=== PATIENT | male | born 1955 | race Hispanic/Latino ===

== ENCOUNTER 2018-07-26 08:40 | Outpatient (CLI) | payer BC ==
[2018-07-26 10:17] LABS: Estimated GFR-MDRD - POC Greater than 90
--- NOTE | 2018-07-26 12:58 | MRI ---
MRI BRAIN WITH AND WITHOUT CONTRAST: HISTORY: Left acoustic neuroma. Checkup. The patient had surgery two years ago for tumor removal. COMPARISON: 12/09/2016 and 03/16/2016 TECHNIQUE: A brain MRI is performed with and without intravenous Gadolinium administration. Multisequential, mu ltiplanar imaging is performed. FINDINGS: The calvarium has a normal T1 marrow signal intensity. Midline brain parenchymal structures are unre markable. There is redemonstration of a left occipital craniotomy defect. The previously noted enhancing mass in the left CP angle cistern is no longer evident. There is a stable T2 hyperintense collection, ext raaxial in location. This collection is in the left posterior fossa and extends into the left CP ang le cistern. Currently, this collection measure 2.8 x 4.6 cm. There is some mass effect upon the adj acent left cerebellar hemisphere and left brachium pontis. There is some component of malacic change and gliosis involving the left cerebellar hemisphere, similar to the previous examination. Central arterial flow voids are maintained. Absent restricted diffusion. No significant T2 or FLAIR white matter hyperintensities in the cerebrum. Mild mucosal disease of th e visualized paranasal sinuses. Minimal mucosal disease of the mastoid air cells. On the post contrast images, there is no abnormal enhancement within the aforementioned postoperative collection. 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 Currently, this focus of enhancement measures 0.7 x 0.9 cm (prev iously measuring 0.7 x 1.1 cm). Enhancement is confined to the canal and does not appear to extend b eyond the canal, into the left CP angle cistern. No pathologic enhancement of the brain parenchyma. IMPRESSION: 1. Stable postoperative changes, as described above. 2. 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 No evidence of progression of tumor. POS: [facility]
[2018-07-26] MEDS ORDERED: Gadobenate Dimeglumine 529 MG/1 ML (20ML VIAL) ONE (13:24)
== END 2018-07-26 08:41 | disposition home or self-care (01) ==
LOC: BICMRI 08:40
PROVIDERS: ATTEND Neurological Surgery
DX: D33.3 Benign neoplasm of cranial nerves (principal); H93.8X2 Other specified disorders of left ear; Z98.890 Other specified postprocedural states
CPT/HCPCS: 70553; 82565; A9577

== ENCOUNTER 2019-12-27 09:04 | Outpatient (CLI) | payer MEDICARE, BC ==
--- NOTE | 2019-12-27 12:55 | MRI ---
MRI RIGHT SHOULDER WITHOUT CONTRAST: Date: 12/27/2019 INDICATION: Right shoulder pain. COMPARISON: None. FINDINGS: There is a massive rotator cuff tear involving the supraspinatus and infraspinatus retraction of the tendons to the level of the glenohumeral joint. There is severe infraspinatus and moderate supraspina tus muscular atrophy. The subscapularis tendon demonstrates a high grade partial thickness articular surface tear involving the cranial to mid aspect of the tendon. The teres minor is intact. There is m oderate AC joint osteoarthritis. There is mild glenohumeral osteoarthrosis. The long head of the douglas ps tendon demonstrates a high grade partial thickness tear with a small remnant remaining intact and in place within the bicipital groove. There is prominent degenerative fraying of the superior glenoid labrum. IMPRESSION: 1. Massive rotator cuff tear with severe infraspinatus and moderate supraspinatus muscular atrophy. There is also high grade partial thickness articular surface tear involving the cranial to mid subsca pularis. There is a high grade partial thickness tear of the long head of the biceps tendon. 2. Mild glenohumeral osteoarthrosis. 3. Moderate AC joint osteoarthrosis. POS: [facility]
== END 2019-12-27 09:05 | disposition home or self-care (01) ==
LOC: BICMRI 09:04
PROVIDERS: ATTEND Family Medicine
DX: M25.511 Pain in right shoulder (principal); M19.011 Primary osteoarthritis, right shoulder; M62.511 Muscle wasting and atrophy, not elsewhere classified, right shoulder; S46.111A Strain of muscle, fascia and tendon of long head of biceps, right arm, initial encounter; M75.111 Incomplete rotator cuff tear or rupture of right shoulder, not specified as traumatic

== ENCOUNTER 2020-03-22 08:07 | Outpatient (CLI) | payer MEDICARE, BC ==
--- NOTE | 2020-03-22 08:36 | ULT ---
ULTRASOUND ABDOMINAL AORTA: HISTORY: Screening for abdominal aortic aneurysm FINDINGS: The abdominal aortic measurements are as follows: Proximal: 2.1 x 1.6 x 1.7cm Mid: 1.9 x 1.6 x 1.5cm Distal: 1.5 x 1.3 x 1.0cm IMPRESSION: No evidence of abdominal aortic aneurysm.
== END 2020-03-22 08:08 | disposition home or self-care (01) ==
LOC: BICULT 08:07
PROVIDERS: ATTEND Family Medicine
DX: Z13.6 Encounter for screening for cardiovascular disorders (principal)
CPT/HCPCS: 76775

== ENCOUNTER 2020-04-03 17:00 | Inpatient (IN) | payer MEDICARE, BC ==
[2020-04-03] MEDS ORDERED: Cefepime 2 GM VIAL ONE (17:32)
[2020-04-03] MEDS ORDERED: Vancomycin 1 GM/200 ML BAG ONE ×2 (17:34→18:31)
[2020-04-03 17:47] LABS: #Eosinphils 0.1 thou/uL (0.0-0.7); #Lymphocytes 0.6 thou/uL (1.20-3.40); #Monocytes 0.3 thou/uL (0.11-0.59); #Neutrophils 9.2 thou/uL (1.40-6.50); %Basophils 0.1 % (0.0-1.0); %Eosinophils 0.8 % (0.0-10.0); %Lymphocytes 5.8 % (21.0-51.0); %Monocytes 2.5 % (0.0-10.0); %Neutrophils 90.8 % (42.0-75.0); Mean Corpuscular HGB CONC 33.2 g/dL (32.0-36.0); Mean Corpuscular Volume 87.6 fL (78.0-98.0); Mean Platelet Volume 7.2 fL (7.4-10.4); Platelet Count 263 thou/uL (130-400); RBC Distribution Width 12.7 % (11.5-14.5); Red Blood Cell (RBC) Count 4.49 mill/uL (4.70-6.10); White Blood Cell (WBC) Count 10.1 thou/uL (4.8-10.8)
--- NOTE | 2020-04-03 18:06 | RAD ---
Exam: Chest one view HISTORY:Fever. Comparison: None FINDINGS: Cardiac silhouette: Normal Aorta: Unremarkable Pulmonary vessels: Normal Costophrenic angles: Clear LUNGS: No masses or consolidation. Pneumothorax: None Osseous abnormalities: None IMPRESSION: No acute cardiopulmonary process.
[2020-04-03 18:09] LABS: ALT (SGPT) 71 U/L (8-55); AST (SGOT) 52 U/L (5-34); Albumin 3.6 g/dL (3.4-4.8); Alkaline Phosphatase 98 U/L (40-110); Anion Gap 14 mmol/L (10-20); BUN (Urea Nitrogen) 18 mg/dL (8.4-25.7); Bilirubin, Total 0.7 mg/dL (0.2-1.2); CK (CPK) 64 U/L (30-200); Calc. Creatinine Clearance 0 mL/min (70-130); Calcium 7.8 mg/dL (7.8-10.44); Carbon Dioxide 18 mmol/L (23-31); Chloride 110 mmol/L (98-107); Estimated GFR-MDRD Greater than 90; Globulin 2.5 g/dL (2.4-3.5); Glucose 119 mg/dL (80-115); Lipase 24 U/L (8-78); Potassium 3.8 mmol/L (3.5-5.1); Protein, Total 6.1 g/dL (5.8-8.1); Sodium 138 mmol/L (136-145)
[2020-04-03 18:27] LABS: CKMB 0.8 ng/mL (0-6.6)
[2020-04-03] MEDS ORDERED: Clopidogrel Bisulfate 75 MG TAB ONE (18:30)
[2020-04-03 20:16] LABS: Bacteria/HPF None Seen HPF (None Seen); Bilirubin Negative (Negative); Blood, Urine Trace (Negative); Clarity Clear (Clear); Glucose, Urine (Dipstick) Normal (Negative); Ketone, Urine Negative (Negative); Leukocyte 75 Leu/uL (Negative); Mucous/LPF Rare LPF (<2+); Nitrite Negative (Negative); Protein, Urine (Dipstick) 10 mg/dL (Neg-Trace); RBC/HPF 0-3 HPF (0-3); Specific Gravity, Urine 1.019 (1.002-1.036); Squamous Epithelial 0-3 HPF (0-3); Urobilinogen Normal mg/dL (Less than 2)
[2020-04-03 22:18] LABS: Troponin I 0.849 ng/mL (< 0.028)
[2020-04-03] MEDS ORDERED: Promethazine HCl 12.5 MG in Sodium Chloride 0.9% 50 ML IVPB PRN (22:35)
[2020-04-03] MEDS ORDERED: cloNIDine 0.1 MG TAB PO PRN (22:35)
[2020-04-03] MEDS ORDERED: Acetaminophen 325 MG TAB PO PRN (22:35)
[2020-04-03] MEDS ORDERED: hydrALAZINE 20 MG/ML VIAL SLOW IVP PRN (22:35)
[2020-04-03] MEDS ORDERED: Labetalol HCl 100 MG/20 ML VIAL SLOW IVP PRN (22:35)
[2020-04-03] MEDS ORDERED: Ondansetron PF 4 MG/2 ML Vial IVP PRN (22:35)
[2020-04-03] MEDS ORDERED: Guaifenesin DM 100-10/5 ML UDCUP PO PRN (22:35)
--- NOTE | 2020-04-03 22:37 | PDOC.HHP ---
Hospitalist HPI - History of Present Illness Fever, chills History of Present Illness: Patient is a 65 year old male with PMH HTN, HLD, bells palsy who presents to ED for fevers and chills x 1 day. Patient reports symptoms of chills and weakness began today, he was also reportedly altered, rectal temperature checked at home and was 103.1 w/ EMS. given NS, tylenol. In ED, febrile/tachycardic. given 30 cc/kg bolus. troponin increased on repeat check, lovenox ordered, also given plavix since allergy to NSAID in chart. UA positive for Denies chest pain, currently aox4, denies any other symptoms today besides fever, chills and generalized weakness. No cardaic history. admitted for further workup and care. Hospitalist ROS - Review of Systems Constitutional: reports: fever, chills, weakness, malaise. denies: sweats, other Eyes: denies: pain, vision change, conjunctivae inflammation, eyelid inflammation, redness, other ENT: denies: ear pain, ear discharge, nose pain, nose discharge, nose congestion, mouth pain, mouth swelling, throat pain, throat swelling, other Respiratory: denies: cough, dry, shortness of breath, hemoptysis, SOB with excertion, pleuritic pain, sputum, wheezing, other Cardiovascular: denies: chest pain, palpitations, orthopnea, paroxysmal noc. dyspnea, edema, light headedness, other Gastrointestinal: denies: nausea, vomiting, abdominal pain, diarrhea, constipation, melena, hematochezia, other Genitourinary: denies: dysuria, frequency, incontinence, hematuria, retention, other Musculoskeletal: denies: neck pain, shoulder pain, arm pain, back pain, hand pain, leg pain, foot pain, other Skin: denies: rash, lesions, lakeshia, bruising, other Neurological: denies: weakness, numbness, incoordination, change in speech, confusion, seizures, other All other systems reviewed; all pertinent +/- noted in HPI/Subj - Medication Medications: reviewed, [id number] po bid, atorvastatin po daily Hospitalist History - Past Medical History Other Medical History: HTN, HLD, bells palsy - Past Surgical History Other Surgical History: R hip, neck surgery - Family History Family History: reports: no pertinent history - Social History Smoking Status: Never smoker Alcohol: reports: None Drugs: reports: none - Exam General Appearance: NAD, awake alert Eye: PERRL, anicteric sclera ENT: normocephalic atraumatic, no oropharyngeal lesions, moist mucosa Neck: supple, symmetric, no JVD, no thyromegaly, no lymphadenopathy, no carotid bruit Heart: RRR, no murmur, no gallops, no rubs, normal peripheral pulses Respiratory: CTAB, no wheezes, no rales, no ronchi, normal chest expansion, no tachypnea, normal percussion Gastrointestinal: soft, non-tender, non-distended, normal bowel sounds, no palpable masses, no hepatomegaly, no splenomegaly, no bruit Extremities: no cyanosis, no clubbing, no edema Skin: normal turgor, no lesions, no rashes Neurological: cranial nerve grossly intact, normal sensation to touch, no weakness, no focal deficits, no new deficit Musculoskeletal: normal tone, normal strength, no muscle wasting Psychiatric: normal affect, normal behavior, A&O x 3 Hospitalist Results - Labs Result Diagrams: 04/03/20 17:34 04/03/20 17:34 Lab results: WBC 10.1 thou/uL (4.8-10.8) 04/03/20 17:34 Hgb 13.0 g/dL (14.0-18.0) L 04/03/20 17:34 Hct 39.3 % (42.0-52.0) L 04/03/20 17:34 MCV 87.6 fL (78.0-98.0) 04/03/20 17:34 Plt Count 263 thou/uL (130-400) 04/03/20 17:34 Neutrophils % 90.8 % (42.0-75.0) H 04/03/20 17:34 Sodium 138 mmol/L (136-145) 04/03/20 17:34 Potassium 3.8 mmol/L (3.5-5.1) 04/03/20 17:34 Chloride 110 mmol/L (98-107) H 04/03/20 17:34 Carbon Dioxide 18 mmol/L (23-31) L 04/03/20 17:34 BUN 18 mg/dL (8.4-25.7) 04/03/20 17:34 Creatinine 0.79 mg/dL (0.7-1.3) 04/03/20 17:34 Glucose 119 mg/dL (80-115) H 04/03/20 17:34 Lactic Acid 1.8 mmol/L (0.5-2.2) 04/03/20 17:34 Calcium 7.8 mg/dL (7.8-10.44) 04/03/20 17:34 Total Bilirubin 0.7 mg/dL (0.2-1.2) 04/03/20 17:34 AST 52 U/L (5-34) H 04/03/20 17:34 ALT 71 U/L (8-55) H 04/03/20 17:34 Alkaline Phosphatase 98 U/L (40-110) 04/03/20 17:34 Creatine Kinase 64 U/L (30-200) 04/03/20 17:34 CK-MB (CK-2) 0.8 ng/mL (0-6.6) 04/03/20 17:34 Troponin I 0.849 ng/mL (< 0.028) H* 04/03/20 21:30 B-Natriuretic Peptide 40.3 pg/mL (0-100) 04/03/20 17:34 Serum Total Protein 6.1 g/dL (5.8-8.1) 04/03/20 17:34 Albumin 3.6 g/dL (3.4-4.8) 04/03/20 17:34 Lipase 24 U/L (8-78) 04/03/20 17:34 Urine Ketones Negative mg/dL (Negative) 04/03/20 19:52 Urine Blood Trace (Negative) A 04/03/20 19:52 Urine Nitrite Negative (Negative) 04/03/20 19:52 Ur Leukocyte Esterase 75 Nieves/uL (Negative) A 04/03/20 19:52 Urine RBC 0-3 HPF (0-3) 04/03/20 19:52 Urine WBC 7-10 HPF (0-3) A 04/03/20 19:52 Ur Squamous Epith Cells 0-3 HPF (0-3) 04/03/20 19:52 Urine Bacteria None Seen HPF (None Seen) 04/03/20 19:52 Additional comment: VITAL SIGNS Wed Apr 03, 2020 22:07 RAFAEL Thapa [place] BP: 106/56 MAP: 72 Pulse: 82 Resp: 17 Temp: 98.6 (Oral) O2 sat: 96 on (Room Air) Time: 04/03/2020 22:07. ED documents, imaging reports, labs, microbiology reviewed. - EKG Interpretation EKG: sinus tachycardia rate [address] changes of acuity QTc 515 Hospitalist H&P A/P - Plan Plan: Patient is a 65 year old male with PMH HTN, HLD, bells palsy who presents to ED for fevers and chills x 1 day. Patient reports symptoms of chills and weakness began today, he was also reportedly altered, rectal temperature checked at home and was 103.1 w/ EMS. given NS, tylenol. In ED, febrile/tachycardic. given 30 cc/kg bolus. troponin increased on repeat check, lovenox ordered, also given plavix since allergy to NSAID in chart. UA positive for Denies chest pain, currently aox4, denies any other symptoms today besides fever, chills and generalized weakness. No cardaic history. admitted for further workup and care. 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 will continue plavix - trend troponin, start ACS dose lovenox - consult cardiology' # HTN/HLD - resume home statin, hold TONY inhibitor while septic, PRN medications ordered DVT/GI ppx
[2020-04-03] MEDS ORDERED: Electrolyte Replacement Protoc 1 EACH EACH FS PRN (22:45)
[2020-04-03 23:33] VITALS: BMI 31.1
[2020-04-03] MEDS: Sodium Chloride 0.9% 1,000 ML IV SCH (23:58)
[2020-04-04] MEDS: Enoxaparin Sodium 80 MG/0.8 ML SYRINGE SC SCH ×3 (00:42→20:48)
[2020-04-04 06:30] LABS: #Lymphocytes 1.4 thou/uL (1.20-3.40); #Monocytes 1.1 thou/uL (0.11-0.59); #Neutrophils 9.3 thou/uL (1.40-6.50); %Basophils 0.3 % (0.0-1.0); %Eosinophils 0.3 % (0.0-10.0); %Lymphocytes 11.4 % (21.0-51.0); %Monocytes 9.2 % (0.0-10.0); %Neutrophils 78.7 % (42.0-75.0); Hemoglobin 13.5 g/dL (14.0-18.0); Mean Corpuscular HGB CONC 32.9 g/dL (32.0-36.0); Mean Corpuscular Hemoglobin 29.5 pg (27.0-31.0); Mean Corpuscular Volume 89.8 fL (78.0-98.0); Mean Platelet Volume 7.6 fL (7.4-10.4); Platelet Count 242 thou/uL (130-400); RBC Distribution Width 12.8 % (11.5-14.5); Red Blood Cell (RBC) Count 4.56 mill/uL (4.70-6.10); White Blood Cell (WBC) Count 11.9 thou/uL (4.8-10.8)
[2020-04-04 07:45] LABS: Troponin I 1.073 ng/mL (< 0.028)
[2020-04-04] MEDS: Atorvastatin Calcium 20 MG TAB PO SCH (08:36)
[2020-04-04] MEDS: Famotidine 20 MG TAB PO SCH ×2 (08:36→20:47)
[2020-04-04] MEDS ORDERED: Clopidogrel Bisulfate 75 MG TAB PO SCH (09:00)
[2020-04-04 09:11] LABS: Anion Gap 13 mmol/L (10-20); BUN (Urea Nitrogen) 16 mg/dL (8.4-25.7); Calc. Creatinine Clearance 113 mL/min (70-130); Carbon Dioxide 20 mmol/L (23-31); Chloride 110 mmol/L (98-107); Estimated GFR-MDRD Greater than 90; Glucose 95 mg/dL (80-115); Potassium 3.9 mmol/L (3.5-5.1); Sodium 139 mmol/L (136-145)
[2020-04-04 09:12] LABS: Magnesium 1.9 mg/dL (1.6-2.6)
[2020-04-04] MEDS ORDERED: Magnesium 2 GM/50 ML 2 GM in Premix Bag 1 BAG IVPB SCH (10:45)
[2020-04-04] MEDS: Sodium Chloride 0.9% 1,000 ML IV SCH (11:40)
[2020-04-04 12:45] LABS: SARS-CoV-2 MS2 Positive; SARS-CoV-2 N Gene Negative; SARS-CoV-2 S Gene Negative; SARS-CoV-2 by NAA Not Detected (NotDetected); SARS-CoV-2 orf1ab Negative
[2020-04-04] MEDS ORDERED: TICAGRELOR 90 MG TABLET PO SCH (14:30)
--- NOTE | 2020-04-04 15:18 | PDOC.HOSPP ---
- Subjective Encounter Date: 04/04/20 Encounter Time: 15:10 Subjective: f/u for sepsis due to suspected UTI on Rocephin. Also with NSTEMI receiving Lovenox/Brilinta/Plavix. - Objective Vital Signs & Weight: Vital Signs (12 hours) Temp Pulse Resp BP BP Pulse Ox 04/04/20 11:39 98.8 F 64 16 123/61 96 04/04/20 08:07 95 04/04/20 07:40 100.3 F H 78 18 141/65 H 95 04/04/20 03:40 99.7 F H 73 18 126/81 97 Weight Weight 181 lb 3 oz I&O: 04/03/20 04/04/20 04/05/20 06:59 06:59 06:59 Intake Total 940 Balance 940 Result Diagrams: 04/04/20 04:51 04/04/20 03:02 Additional Labs: Microbiology 04/03/20 19:52 Urine voided Urine Culture - Preliminary 04/03/20 17:42 Venous blood - Left Arm Blood Culture - Preliminary Specimen has been received and culture in progress. No Growth to date. 04/03/20 17:34 Venous blood - Right Hand Blood Culture - Preliminary Specimen has been received and culture in progress. No Growth to date. Laboratory Tests 04/03/20 04/03/20 04/03/20 17:34 17:34 17:34 WBC 10.1 Hgb 13.0 L Neutrophils % 90.8 H Lactic Acid 1.8 Magnesium Troponin I B-Natriuretic Peptide 40.3 SARS-CoV-2 (PCR) 04/03/20 04/03/20 04/03/20 17:34 21:30 22:49 WBC Hgb Neutrophils % Lactic Acid Magnesium Troponin I 0.145 H 0.849 H* B-Natriuretic Peptide SARS-CoV-2 (PCR) Not Detected 04/04/20 04/04/20 04/04/20 00:43 03:02 04:51 WBC Hgb Neutrophils % 78.7 H Lactic Acid Magnesium 1.9 Troponin I 1.073 H* B-Natriuretic Peptide SARS-CoV-2 (PCR) Radiology Reviewed by me: Yes (PCXR - no acute process) EKG Reviewed by me: Yes (Tele - SR) Hospitalist ROS - Medication Medications: Active Medications Generic Name Dose Route Start Last Admin Trade Name Freq PRN Reason Stop Dose Admin Atorvastatin Calcium 20 mg 04/04/20 09:00 04/04/20 08:36 Atorvastatin Calcium 20 Mg Tab PO 20 mg DAILY INES Administration Enoxaparin Sodium 80 mg 04/03/20 09:00 04/04/20 08:36 Enoxaparin Sodium 80 Mg/0.8 Ml Syringe SC 80 mg 0900,2100 INES Administration Famotidine 20 mg 04/04/20 09:00 04/04/20 08:36 Famotidine 20 Mg Tab PO 20 mg BID INES Administration Sodium Chloride 1,000 mls @ 100 mls/hr 04/03/20 22:45 04/04/20 11:40 Normal Saline 0.9% IV 1,000 mls .Q10H IENS Administration - Exam General Appearance: NAD, awake alert Eye: PERRL, anicteric sclera ENT: normocephalic atraumatic, no oropharyngeal lesions Neck: supple, symmetric, no JVD, no thyromegaly, no lymphadenopathy Heart: RRR, no murmur, no gallops, no rubs, normal peripheral pulses Heart - other findings: S1, S2 Respiratory: CTAB, no wheezes, no rales, no ronchi, normal chest expansion, no tachypnea Gastrointestinal: soft, non-tender, non-distended, normal bowel sounds, no palpable masses Extremities: no cyanosis, no clubbing, no edema Skin: normal turgor, no lesions Neurological: cranial nerve grossly intact, no new deficit Neurological - other findings: L facial droop(chronic) Musculoskeletal: normal tone, normal strength, no muscle wasting Psychiatric: normal affect, A&O x 3 Hosp A/P (1) Sepsis due to gram-negative UTI Code(s): A41.50 - GRAM-NEGATIVE SEPSIS, UNSPECIFIED; N39.0 - URINARY TRACT INFECTION, SITE NOT SPECIFIED Status: Acute Plan: Suspected, increase Rocephin 2gm IV daily, await final Ucx results (2) Type 2 myocardial infarction Code(s): I21.A1 - MYOCARDIAL INFARCTION TYPE 2 Status: Acute Plan: Continue Lovenox/Brilinta/Plavix, likely will need ischemic workup after infectious process resolves (3) Metabolic acidosis Code(s): E87.2 - ACIDOSIS Status: Acute Plan: Secondary to sepsis, continue mgmt as outlined above (4) HTN (hypertension) Code(s): I10 - ESSENTIAL (PRIMARY) HYPERTENSION Status: Chronic Qualifiers: Hypertension type: essential hypertension Qualified Code(s): I10 - Essential (primary) hypertension Plan: Resume home BP regimen, serial monitoring - Plan continue antibiotics, aids social worker, out of bed/ambulate, DVT proph w/SCDs Stable currently Continue Rocephin 2gm IV daily Continue Plavix/Brilinta/Lovenox Await final Ucx results 2D echo pending AM lab: CMP, CBC
--- NOTE | 2020-04-04 19:57 | CON ---
DATE OF CONSULTATION: HISTORY: Al Saldana is a pleasant 65-year-old male without any specific previous cardiac problems, although he did have somewhat abnormal EKG, 1 month ago on routine physical. At home yesterday, he started to have temperatures up to 103.1 and apparently was becoming somewhat confused and had mental status changes. One week prior to this, he did notice episodes of urinary frequency and hematuria. He then started to develop dysuria. Family called EMS and he was transferred here. He was given intravenous fluids and was started on Plavix since he is allergic to NSAIDs. He has been started on broad-spectrum antibiotics with Rocephin and is afebrile at the current time. He denies ever having any previous episodes of chest discomfort. He states that he did have shortness of breath when he smokes cigarettes, but stopped 3 years ago. He denies any PND, orthopnea or leg edema. 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 MEDICATIONS: Atorvastatin 20 daily and lisinopril 10 mg daily. ALLERGIES: HE DEVELOPED A RASH WITH ALEVE AND HAS AVOIDED NSAIDS SINCE THAT TIME. OPERATIONS: Removal of left acoustic neuroma with resulting left Castro's palsy, hip surgery on the right. SOCIAL HISTORY: He smoked 2 packs per day, but stopped 3 years ago. He stopped drinking approximately 30 years ago. FAMILY HISTORY: Mother had CABG. PHYSICAL EXAMINATION: VITAL SIGNS: Blood pressure 123/61, pulse 64, temperature 98.8. HEENT: PERRL. NECK: With left Castro's palsy. CHEST: Clear. CARDIAC: S1 and S2 normal without any S3, S4, or murmurs. Carotid upstroke is normal without bruits. ABDOMEN: Normal bowel sounds. Mildly obese. EXTREMITIES: Reveal no clubbing, cyanosis, or edema. NEUROLOGIC: Grossly intact. LABORATORY DATA: EKG reveals sinus tachycardia with rate of 105 per minute with left axis deviation and left bundle-branch block. In review of an EKG from September 2016 in the [employer] system, the left bundle-branch block is new since that time. Cultures are negative thus far, although the urine culture revealed possible pathogens and isolation is in progress. Urinalysis reveals 0 to 3 rbc's, 7 to 10 wbc's, however, no bacteria are seen. Hemoglobin 13.5, hematocrit 41.0, white count 11,800, platelets 242,000. Sodium 139, potassium 3.9, chloride 110, carbon dioxide 20, BUN 16, and creatinine 0.75. Troponin I is up to 1.073. CK-MB is 0.8. BNP 40.3, AST 52, ALT 71. COVID is negative. IMPRESSION: 1. Probable urosepsis with history of dysuria, hematuria and urinary frequency, although his urinalysis does not show any bacteria. Culture is pending. He has been placed on broad-spectrum antibiotics. 2. New left bundle-branch block since 2017. 3. [id number] myocardial infarction. 4. Hypertension. 5. Hypercholesterolemia. 6. Positive family history. 7. Former smoker. 8. History of acoustic neuroma with resulting left Castro's palsy. 9. NSAID allergy. RECOMMENDATIONS: With multiple cardiac risk factors, new left bundle-branch block on his EKG and elevated troponin I, it was recommended he undergo cardiac catheterization. His cultures are still less than 24 hours old and I feel he should have 2 to 3 days of antibiotics prior to going to the manager lab. Risks of cardiac catheterization were discussed with the patient including , myocardial infarction, dye reaction, vascular injury, CVA, transfusion, limb loss, renal damage, etc. Risks of stent placement were discussed including , myocardial infarction, emergent CABG, restenosis, stent thrombosis, vessel perforation, etc. He agrees to proceed. He denies any upcoming surgeries and a drug-eluting stent will be placed if required, although he will only be able to take Plavix due to his NSAID allergy. A consideration also will be given to transitioning to Brilinta. Job ID: [id number] [facility]
[2020-04-04] MEDS: Lisinopril 10 MG TAB PO SCH (20:47)
[2020-04-04] MEDS: cefTRIAXone\\ROCEPHIN 2 GM in Sodium Chloride 0.9% 100 ML IVPB SCH (20:47)
[2020-04-04] MEDS ORDERED: cefTRIAXone\\ROCEPHIN 1 GM in Sodium Chloride 0.9% 100 ML IVPB SCH (21:00)
[2020-04-05] MEDS: Sodium Chloride 0.9% 1,000 ML IV SCH ×2 (01:49→10:50)
[2020-04-05 05:01] LABS: ALT (SGPT) 56 U/L (8-55); AST (SGOT) 35 U/L (5-34); Albumin 3.2 g/dL (3.4-4.8); Alkaline Phosphatase 73 U/L (40-110); Anion Gap 10 mmol/L (10-20); BUN (Urea Nitrogen) 14 mg/dL (8.4-25.7); Bilirubin, Total 0.7 mg/dL (0.2-1.2); Calc. Creatinine Clearance 116 mL/min (70-130); Calcium 7.9 mg/dL (7.8-10.44); Carbon Dioxide 23 mmol/L (23-31); Cardiac Risk 3.4 (Less than 4.5); Chloride 110 mmol/L (98-107); Cholesterol 100 mg/dl (< 200 Desired); Estimated GFR-MDRD Greater than 90; Globulin 2.5 g/dL (2.4-3.5); Glucose 97 mg/dL (80-115); HDL Cholesterol 29 mg/dL (>60 Neg Risk); LDL Cholesterol, Calculated 56 mg/dL; Potassium 3.8 mmol/L (3.5-5.1); Protein, Total 5.7 g/dL (5.8-8.1); Sodium 139 mmol/L (136-145); Triglycerides 74 mg/dL (Less than 150)
[2020-04-05 05:26] LABS: Band 4 % (5-11); Hemoglobin 11.8 g/dL (14.0-18.0); Lymphocytes 14 % (21-51); MDiff Complete? YES; Mean Corpuscular HGB CONC 33.6 g/dL (32.0-36.0); Mean Corpuscular Hemoglobin 29.7 pg (27.0-31.0); Mean Corpuscular Volume 88.5 fL (78.0-98.0); Mean Platelet Volume 7.1 fL (7.4-10.4); Monocytes 16 % (0-10); Neutrophil 66 % (42-75); Platelet Count 219 thou/uL (130-400); RBC Distribution Width 12.6 % (11.5-14.5); Red Blood Cell (RBC) Count 3.98 mill/uL (4.70-6.10); White Blood Cell (WBC) Count 7.8 thou/uL (4.8-10.8)
[2020-04-05] MEDS: Famotidine 20 MG TAB PO SCH ×2 (08:27→20:26)
[2020-04-05] MEDS: TICAGRELOR 90 MG TABLET PO SCH ×2 (08:27→20:26)
[2020-04-05] MEDS: Atorvastatin Calcium 20 MG TAB PO SCH (08:27)
[2020-04-05] MEDS: Lisinopril 10 MG TAB PO SCH ×2 (08:27→20:26)
[2020-04-05] MEDS: Enoxaparin Sodium 80 MG/0.8 ML SYRINGE SC SCH ×2 (08:28→20:27)
--- NOTE | 2020-04-05 15:23 | PDOC.HOSPP ---
- Subjective Encounter Date: 04/05/20 Encounter Time: 15:20 Subjective: f/u for sepsis due UTI with polymicrobial specimen on current Rocephin. NSTEMI concomitantly on Lovenox/Brilinta. - Objective Vital Signs & Weight: Vital Signs (12 hours) Temp Pulse Resp BP BP Pulse Ox 04/05/20 11:32 97.7 F 58 L 18 177/79 H 96 04/05/20 07:19 98.4 F 57 L 19 161/71 H 96 04/05/20 03:30 98.3 F 60 16 154/72 H 96 Weight Weight 181 lb 3 oz I&O: 04/04/20 04/05/20 04/06/20 06:59 06:59 06:59 Intake Total 940 3650 Balance 940 3650 Result Diagrams: 04/05/20 04:16 04/05/20 04:16 Additional Labs: Microbiology 04/03/20 19:52 Urine voided Urine Culture - Final Gram Negative Teddy Gram Negative Teddy#2 Non-Hemolytic Streptococcus 04/03/20 19:52 Urine voided Urine Culture - Preliminary 04/03/20 17:42 Venous blood - Left Arm Blood Culture - Preliminary Specimen has been received and culture in progress. No Growth to date. 04/03/20 17:34 Venous blood - Right Hand Blood Culture - Preliminary Specimen has been received and culture in progress. No Growth to date. 04/03/20 17:34 Venous blood - Right Hand Blood Culture - Preliminary Gram Positive Teddy Laboratory Tests 04/03/20 04/03/20 04/03/20 17:34 17:34 17:34 WBC 10.1 Hgb 13.0 L Neutrophils % 90.8 H Lactic Acid 1.8 Magnesium Troponin I B-Natriuretic Peptide 40.3 SARS-CoV-2 (PCR) 04/03/20 04/03/20 04/03/20 17:34 21:30 22:49 WBC Hgb Neutrophils % Lactic Acid Magnesium Troponin I 0.145 H 0.849 H* B-Natriuretic Peptide SARS-CoV-2 (PCR) Not Detected 04/04/20 04/04/20 04/04/20 00:43 03:02 04:51 WBC 11.9 H Hgb Neutrophils % 78.7 H Lactic Acid Magnesium 1.9 Troponin I 1.073 H* B-Natriuretic Peptide SARS-CoV-2 (PCR) Radiology Reviewed by me: Yes (Echo - EF 55-60%, mild-mod MR, mod AR) EKG Reviewed by me: Yes (Tele - SR) Hospitalist ROS - Medication Medications: Active Medications Generic Name Dose Route Start Last Admin Trade Name Freq PRN Reason Stop Dose Admin Acetaminophen 650 mg 04/03/20 22:35 04/04/20 19:34 Acetaminophen 325 Mg Tab PO 650 mg Q4H PRN Administration Headache/Fever/Mild Pain (1-3) Atorvastatin Calcium 20 mg 04/04/20 09:00 04/05/20 08:27 Atorvastatin Calcium 20 Mg Tab PO 20 mg DAILY INES Administration Enoxaparin Sodium 80 mg 04/03/20 09:00 04/05/20 08:28 Enoxaparin Sodium 80 Mg/0.8 Ml Syringe SC 04/07/20 12:00 80 mg 0900,2100 INES Administration Famotidine 20 mg 04/04/20 09:00 04/05/20 08:27 Famotidine 20 Mg Tab PO 20 mg BID INES Administration Ceftriaxone Sodium 2 gm/ 100 mls @ 200 mls/hr 04/04/20 21:00 04/04/20 20:47 Sodium Chloride IVPB 100 mls HS INES Administration Lisinopril 10 mg 04/04/20 21:00 04/05/20 08:27 Lisinopril 10 Mg Tab PO 10 mg BID INES Administration Sodium Chloride 10 ml 04/04/20 21:00 04/05/20 08:28 Flush - Normal Saline 10 Ml Syringe IVF 10 ml Q12HR INES Administration Ticagrelor 90 mg 04/05/20 09:00 04/05/20 08:27 Ticagrelor 90 Mg Tablet PO 90 mg BID INES Administration - Exam General Appearance: NAD, awake alert Eye: PERRL, anicteric sclera ENT: normocephalic atraumatic, no oropharyngeal lesions Neck: supple, symmetric, no JVD, no thyromegaly, no lymphadenopathy Heart: RRR, no murmur, no gallops, no rubs, normal peripheral pulses Heart - other findings: S1, S2 Respiratory: CTAB, no wheezes, no rales, no ronchi, normal chest expansion Gastrointestinal: soft, non-tender, non-distended, normal bowel sounds Extremities: no cyanosis, no clubbing, no edema Skin: normal turgor, no lesions Neurological: cranial nerve grossly intact, no new deficit Musculoskeletal: normal tone, normal strength, no muscle wasting Psychiatric: normal affect, A&O x 3 Hosp A/P (1) Sepsis due to gram-negative UTI Code(s): A41.50 - GRAM-NEGATIVE SEPSIS, UNSPECIFIED; N39.0 - URINARY TRACT INFECTION, SITE NOT SPECIFIED Status: Acute Plan: Polymicrobial spp with final sensitivities pending, continue Rocephin and add Levaquin (2) Type 2 myocardial infarction Code(s): I21.A1 - MYOCARDIAL INFARCTION TYPE 2 Status: Acute Plan: Continue med mgmt, Lovenox/Brilinta, appreciate Cardiology assistance, plan for heart cath 04/08/20 (3) Metabolic acidosis Code(s): E87.2 - ACIDOSIS Status: Acute (4) HTN (hypertension) Code(s): I10 - ESSENTIAL (PRIMARY) HYPERTENSION Status: Chronic Qualifiers: Hypertension type: essential hypertension Qualified Code(s): I10 - Essential (primary) hypertension - Plan continue antibiotics, out of bed/ambulate, DVT proph w/SCDs Stable currently Continue Rocephin 2gm IV daily Add Levaquin until final cx sensitivities available Continue Plavix/Brilinta/Lovenox Plan for heart cath on 04/08/20 Trial Flomax 0.4mg HS AM lab: BMP, H/H
[2020-04-05] MEDS: Tamsulosin HCl 0.4 MG CAP PO SCH (20:25)
[2020-04-05] MEDS: cefTRIAXone\\ROCEPHIN 2 GM in Sodium Chloride 0.9% 100 ML IVPB SCH (20:26)
[2020-04-05] MEDS: Metoprolol Tartrate 25 MG TAB PO SCH (20:26)
[2020-04-06] MEDS: Loratadine 10 MG TAB PO PRN (01:25)
[2020-04-06 04:17] LABS: Hemoglobin 12.3 g/dL (14.0-18.0); Platelet Count 247 thou/uL (130-400)
[2020-04-06 04:40] LABS: Anion Gap 12 mmol/L (10-20); BUN (Urea Nitrogen) 10 mg/dL (8.4-25.7); Calc. Creatinine Clearance 116 mL/min (70-130); Calcium 8.2 mg/dL (7.8-10.44); Carbon Dioxide 23 mmol/L (23-31); Chloride 107 mmol/L (98-107); Estimated GFR-MDRD Greater than 90; Glucose 98 mg/dL (80-115); Potassium 3.6 mmol/L (3.5-5.1); Sodium 138 mmol/L (136-145)
[2020-04-06] MEDS: Enoxaparin Sodium 80 MG/0.8 ML SYRINGE SC SCH ×2 (08:16→20:53)
[2020-04-06] MEDS: Metoprolol Tartrate 25 MG TAB PO SCH ×2 (08:16→20:53)
[2020-04-06] MEDS: Atorvastatin Calcium 20 MG TAB PO SCH (08:16)
[2020-04-06] MEDS: Famotidine 20 MG TAB PO SCH ×2 (08:16→20:53)
[2020-04-06] MEDS: Lisinopril 10 MG TAB PO SCH (08:16)
[2020-04-06] MEDS: TICAGRELOR 90 MG TABLET PO SCH ×2 (08:28→20:54)
[2020-04-06] MEDS ORDERED: Nitroglycerin 2% Ointment 1 INCH/1 GM Packet TOP SCH (10:15)
--- NOTE | 2020-04-06 10:50 | PDOC.CPN ---
- Subjective Date: 04/06/20 Time: 10:00 - Objective Allergies/Adverse Reactions: Allergies Allergy/AdvReac Type Severity Reaction Status Date / Time naproxen sodium [From Aleve] Allergy Verified 04/03/20 23:35 Visit Medications: Current Medications Acetaminophen (Acetaminophen 325 Mg Tab) 650 mg PO Q4H PRN PRN Reason: Headache/Fever/Mild Pain (1-3) Last Admin: 04/04/20 19:34 Dose: 650 mg Documented by: Albuterol/Ipratropium (Ipratropium/Albuterol Sulfate 3 Ml Neb) 3 ml NEB [id number] PRN PRN Reason: SOB &/or Wheezing Atorvastatin Calcium (Atorvastatin Calcium 20 Mg Tab) 20 mg PO DAILY [facility] Last Admin: 04/06/20 08:16 Dose: 20 mg Documented by: Clonidine (Clonidine 0.1 Mg Tab) 0.1 mg PO BID PRN PRN Reason: SBP > 160 use second Enoxaparin Sodium (Enoxaparin Sodium 80 Mg/0.8 Ml Syringe) 80 mg SC 0900,2100 [facility] Stop: 04/07/20 12:00 Last Admin: 04/06/20 08:16 Dose: 80 mg Documented by: Famotidine (Famotidine 20 Mg Tab) 20 mg PO BID [facility] Last Admin: 04/06/20 08:16 Dose: 20 mg Documented by: Guaifenesin/Dextromethorphan (Guaifenesin Dm 100-10/5 Ml Udcup) 15 ml PO Q4H PRN PRN Reason: Cough Hydralazine HCl (Hydralazine 20 Mg/Ml Vial) 10 mg SLOW IVP Q6H PRN PRN Reason: SBP GREATER THAN 160 Promethazine HCl 12.5 mg/ (Sodium Chloride) 50.5 mls @ 202 mls/hr IVPB Q6H PRN PRN Reason: Nausea/vomiting use second Ceftriaxone Sodium 2 gm/ (Sodium Chloride) 100 mls @ 200 mls/hr IVPB HS [facility] Last Admin: 04/05/20 20:26 Dose: 100 mls Documented by: Sodium Chloride (Normal Saline 0.9%) 1,000 mls @ 100 mls/hr IV .Q10H [facility] Levofloxacin 500 mg/ Device 100 mls @ 100 mls/hr IVPB Q24HR@1800 [facility] Last Admin: 04/05/20 17:51 Dose: 100 mls Documented by: Labetalol HCl (Labetalol Hcl 100 Mg/20 Ml Vial) 20 mg SLOW IVP Q4H PRN PRN Reason: SBP > 160 use third Lisinopril (Lisinopril 10 Mg Tab) 10 mg PO BID [facility] Last Admin: 04/06/20 08:16 Dose: 10 mg Documented by: Loratadine (Loratadine 10 Mg Tab) 10 mg PO DAILYPRN PRN PRN Reason: Congestion Last Admin: 04/06/20 01:25 Dose: 10 mg Documented by: Metoprolol Tartrate (Metoprolol Tartrate 25 Mg Tab) 12.5 mg PO BID [facility] Last Admin: 04/06/20 08:16 Dose: 12.5 mg Documented by: Miscellaneous Information (Cath On 04/08) 0 each FS .CATH ON 04/08 [facility] Stop: 04/08/20 16:00 Miscellaneous Medication (Electrolyte Replacement Protoc 1 Each Each) 1 each FS PRN PRN PRN Reason: ELECTROLYTES Nitroglycerin (Nitroglycerin 2% Ointment 1 Inch/1 Gm Packet) 1 inch TOP BID [facility] Nitroglycerin (Nitroglycerin 2% Ointment 1 Inch/1 Gm Packet) 1 inch TOP NOW [facility] Stop: 04/06/20 13:00 Last Admin: 04/06/20 10:20 Dose: 1 inch Documented by: Ondansetron HCl (Ondansetron Pf 4 Mg/2 Ml Vial) 4 mg IVP Q6H PRN PRN Reason: Nausea/Vomiting use 1st Sodium Chloride (Flush - Normal Saline 10 Ml Syringe) 10 ml IVF Q12HR [facility] Last Admin: 04/06/20 08:17 Dose: 10 ml Documented by: Sodium Chloride (Flush - Normal Saline 10 Ml Syringe) 10 ml IVF PRN PRN PRN Reason: Saline Flush Tamsulosin HCl (Tamsulosin Hcl 0.4 Mg Cap) 0.4 mg PO HS [facility] Last Admin: 04/05/20 20:25 Dose: 0.4 mg Documented by: Ticagrelor (Ticagrelor 90 Mg Tablet) 90 mg PO BID [facility] Last Admin: 04/06/20 08:28 Dose: 90 mg Documented by: Vital Signs & Weight: Vital Signs Temp Pulse Resp BP BP Pulse Ox 04/06/20 10:20 65 165/70 H 04/06/20 08:06 98.0 F 70 16 166/74 H 95 04/06/20 04:00 98.7 F 57 L 12 171/79 H 93 L Weight 181 lb 3 oz - Labs Result Diagrams: 04/06/20 03:42 04/06/20 03:42 Troponin/CKMB CK-MB (CK-2) 0.8 ng/mL (0-6.6) 04/03/20 17:34 Troponin I 1.073 ng/mL (< 0.028) H* 04/04/20 00:43 - Assessment/Plan Assessment/Plan: 1. NSTEMI 2. Urosepsis 3. Transient LBBB 4. HTN 5. HLD 6. Moderate AI Plan for LHC on Wednesday. Will add HCTZ for BP management. I agree with the A/P by the PA. MD óscar
[2020-04-06] MEDS ORDERED: Hydrochlorothiazide 25 MG TAB PO SCH (11:00)
--- NOTE | 2020-04-06 17:55 | PDOC.HOSPP ---
- Subjective Subjective: Patient was seen examined at bedside. He denied any chest pain. Urine cultures and blood cultures are still pending. - Objective Vital Signs & Weight: Vital Signs (12 hours) Temp Pulse Resp BP BP Pulse Ox 04/06/20 15:24 97.7 F 66 17 153/70 H 96 04/06/20 11:29 61 126/73 04/06/20 11:04 97.6 F 65 15 133/70 96 04/06/20 10:20 65 165/70 H 04/06/20 08:06 98.0 F 70 16 166/74 H 95 Weight Weight 181 lb 3 oz I&O: 04/05/20 04/06/20 04/07/20 06:59 06:59 06:59 Intake Total 3650 1920 Output Total 450 Balance 3650 1470 Result Diagrams: 04/06/20 03:42 04/06/20 03:42 Radiology Reviewed by me: Yes EKG Reviewed by me: Yes Hospitalist ROS - Medication Medications: Active Medications Generic Name Dose Route Start Last Admin Trade Name Freq PRN Reason Stop Dose Admin Acetaminophen 650 mg 04/03/20 22:35 04/04/20 19:34 Acetaminophen 325 Mg Tab PO 650 mg Q4H PRN Administration Headache/Fever/Mild Pain (1-3) Atorvastatin Calcium 20 mg 04/04/20 09:00 04/06/20 08:16 Atorvastatin Calcium 20 Mg Tab PO 20 mg DAILY [facility] Administration Enoxaparin Sodium 80 mg 04/03/20 09:00 04/06/20 08:16 Enoxaparin Sodium 80 Mg/0.8 Ml Syringe SC 04/07/20 12:00 80 mg 0900,2100 [facility] Administration Famotidine 20 mg 04/04/20 09:00 04/06/20 08:16 Famotidine 20 Mg Tab PO 20 mg BID [facility] Administration Ceftriaxone Sodium 2 gm/ 100 mls @ 200 mls/hr 04/04/20 21:00 04/05/20 20:26 Sodium Chloride IVPB 100 mls HS [facility] Administration Levofloxacin 500 mg/ Device 100 mls @ 100 mls/hr 04/05/20 18:00 04/06/20 17:29 IVPB 100 mls Q24HR@1800 [facility] Administration Loratadine 10 mg 04/05/20 21:11 04/06/20 01:25 Loratadine 10 Mg Tab PO 10 mg DAILYPRN PRN Administration Congestion Metoprolol Tartrate 12.5 mg 04/05/20 21:00 04/06/20 08:16 Metoprolol Tartrate 25 Mg Tab PO 12.5 mg BID [facility] Administration Sodium Chloride 10 ml 04/04/20 21:00 04/06/20 08:17 Flush - Normal Saline 10 Ml Syringe IVF 10 ml Q12HR [facility] Administration Tamsulosin HCl 0.4 mg 04/05/20 21:00 04/05/20 20:25 Tamsulosin Hcl 0.4 Mg Cap PO 0.4 mg HS [facility] Administration Ticagrelor 90 mg 04/05/20 09:00 04/06/20 08:28 Ticagrelor 90 Mg Tablet PO 90 mg BID [facility] Administration - Exam General Appearance: NAD Eye: PERRL ENT: normocephalic atraumatic Neck: supple Heart: RRR, no murmur Respiratory: CTAB, no wheezes Gastrointestinal: soft, non-tender Extremities: no cyanosis Skin: normal turgor Neurological: cranial nerve grossly intact, normal sensation to touch, no weakness Hosp A/P - Plan Sepsis secondary to UTI --cont IV abx, follow final cultures results Gram-negative UTI --as above. Positive blood culture --possible contaminant, follow final results. NSTEMI --cont antiplt therapy, statin, ACEi, BB. Lovenox --LHC on Wednesday per cardiology --No chest pain HTN --cont current mgt Urinary frequency --cont Flomax
[2020-04-06] MEDS: cefTRIAXone\\ROCEPHIN 2 GM in Sodium Chloride 0.9% 100 ML IVPB SCH (20:52)
[2020-04-06] MEDS: Nitroglycerin 2% Ointment 1 INCH/1 GM Packet TOP SCH (20:53)
[2020-04-06] MEDS: Tamsulosin HCl 0.4 MG CAP PO SCH (20:54)
[2020-04-07 04:08] LABS: #Eosinphils 0.1 thou/uL (0.0-0.7); #Lymphocytes 1.6 thou/uL (1.20-3.40); #Monocytes 1.1 thou/uL (0.11-0.59); %Basophils 0.2 % (0.0-1.0); %Lymphocytes 16.6 % (21.0-51.0); %Neutrophils 71.2 % (42.0-75.0); Hemoglobin 12.1 g/dL (14.0-18.0); Mean Corpuscular HGB CONC 33.5 g/dL (32.0-36.0); Mean Corpuscular Hemoglobin 28.7 pg (27.0-31.0); Mean Corpuscular Volume 85.7 fL (78.0-98.0); Mean Platelet Volume 7.2 fL (7.4-10.4); Platelet Count 286 thou/uL (130-400); RBC Distribution Width 12.5 % (11.5-14.5); Red Blood Cell (RBC) Count 4.22 mill/uL (4.70-6.10); White Blood Cell (WBC) Count 9.8 thou/uL (4.8-10.8)
[2020-04-07 04:14] LABS: INR-International Normal Ratio 1.1; Prothrombin Time 14.6 sec (12.0-14.7)
[2020-04-07 04:34] LABS: Anion Gap 13 mmol/L (10-20); BUN (Urea Nitrogen) 10 mg/dL (8.4-25.7); Calc. Creatinine Clearance 113 mL/min (70-130); Calcium 8.5 mg/dL (7.8-10.44); Carbon Dioxide 22 mmol/L (23-31); Chloride 104 mmol/L (98-107); Estimated GFR-MDRD Greater than 90; Glucose 103 mg/dL (80-115); Potassium 3.4 mmol/L (3.5-5.1); Sodium 136 mmol/L (136-145)
[2020-04-07] MEDS ORDERED: Potassium Chloride 20 MEQ TAB PO SCH (07:00)
[2020-04-07] MEDS: Famotidine 20 MG TAB PO SCH ×2 (07:43→20:20)
[2020-04-07] MEDS: Enoxaparin Sodium 80 MG/0.8 ML SYRINGE SC SCH (07:43)
[2020-04-07] MEDS: Atorvastatin Calcium 20 MG TAB PO SCH (07:43)
[2020-04-07] MEDS: Lisinopril/Hydrochlorothiazide 20/25 mg Tablet PO SCH (07:44)
[2020-04-07] MEDS: Metoprolol Tartrate 25 MG TAB PO SCH ×2 (07:44→20:20)
[2020-04-07] MEDS: Nitroglycerin 2% Ointment 1 INCH/1 GM Packet TOP SCH ×2 (07:45→20:21)
[2020-04-07] MEDS: TICAGRELOR 90 MG TABLET PO SCH ×2 (07:45→20:21)
[2020-04-07] MEDS: Loratadine 10 MG TAB PO PRN (07:49)
--- NOTE | 2020-04-07 08:55 | EKG ---
Test Reason : Blood Pressure : / mmHG Vent. Rate : 063 BPM Atrial Rate : 063 BPM P-R Int : 168 ms QRS Dur : 124 ms QT Int : 478 ms P-R-T Axes : 043 012 027 degrees QTc Int : 489 ms Normal sinus rhythm Non-specific intra-ventricular conduction delay T wave abnormality, consider anterior ischemia Abnormal ECG When compared with ECG of 03-APR-2020 17:59, (Unconfirmed) Vent. rate has decreased BY 42 BPM QRS duration has decreased ST no longer elevated in Anterior leads T wave inversion now evident in Anterior leads T wave inversion no longer evident in Lateral leads Confirmed by DR. Yamila WOOD ([id number]) on 04/07/2020 8:55:22 AM Referred By: CHHAYA Confirmed By:DR. Yamila WOOD
--- NOTE | 2020-04-07 11:44 | PDOC.CPN ---
- Subjective Date: 04/07/20 Time: 11:43 Interval history: No overnight events. No complaints. - Review of Systems General: denies: fever/chills, weight/appetite/sleep changes, night sweats, fatigue Respiratory: denies: cough, congestion, shortness of breath, exercise intolerance Cardiovascular: denies: chest pain, palpitation, edema, paroxysmal nocturnal dyspnea, orthopnea Gastrointestinal: denies: nausea, vomiting, diarrhea, constipation, abd pain, GI bleeding Musculoskeletal: denies: pain, tenderness, stiffness, swelling, arthritis/arthralgias Neurological: denies: numbness, syncope, seizure, weakness - Objective Allergies/Adverse Reactions: Allergies Allergy/AdvReac Type Severity Reaction Status Date / Time naproxen sodium [From Front [employer]k [employer]] Allergy Verified 04/03/20 23:35 Visit Medications: Current Medications Acetaminophen (Acetaminophen 325 Mg Tab) 650 mg PO Q4H PRN PRN Reason: Headache/Fever/Mild Pain (1-3) Last Admin: 04/04/20 19:34 Dose: 650 mg Documented by: Albuterol/Ipratropium (Ipratropium/Albuterol Sulfate 3 Ml Neb) 3 ml NEB [id number] PRN PRN Reason: SOB &/or Wheezing Atorvastatin Calcium (Atorvastatin Calcium 20 Mg Tab) 20 mg PO DAILY [facility] Last Admin: 04/07/20 07:43 Dose: 20 mg Documented by: Clonidine (Clonidine 0.1 Mg Tab) 0.1 mg PO BID PRN PRN Reason: SBP > 160 use second Enoxaparin Sodium (Enoxaparin Sodium 80 Mg/0.8 Ml Syringe) 80 mg SC 0900,2100 [facility] Stop: 04/07/20 12:00 Last Admin: 04/07/20 07:43 Dose: 80 mg Documented by: Famotidine (Famotidine 20 Mg Tab) 20 mg PO BID [facility] Last Admin: 04/07/20 07:43 Dose: 20 mg Documented by: Guaifenesin/Dextromethorphan (Guaifenesin Dm 100-10/5 Ml Udcup) 15 ml PO Q4H PRN PRN Reason: Cough Lisinopril/HCTZ (Lisinopril/Hydrochlorothiazide 20/25 Mg Tablet) 1 tab PO DAILY [facility] Last Admin: 04/07/20 07:44 Dose: 1 tab Documented by: Hydralazine HCl (Hydralazine 20 Mg/Ml Vial) 10 mg SLOW IVP Q6H PRN PRN Reason: SBP GREATER THAN 160 Promethazine HCl 12.5 mg/ (Sodium Chloride) 50.5 mls @ 202 mls/hr IVPB Q6H PRN PRN Reason: Nausea/vomiting use second Ceftriaxone Sodium 2 gm/ (Sodium Chloride) 100 mls @ 200 mls/hr IVPB HS [facility] Last Admin: 04/06/20 20:52 Dose: 100 mls Documented by: Sodium Chloride (Normal Saline 0.9%) 1,000 mls @ 100 mls/hr IV .Q10H [facility] Levofloxacin 500 mg/ Device 100 mls @ 100 mls/hr IVPB Q24HR@1800 [facility] Last Admin: 04/06/20 17:29 Dose: 100 mls Documented by: Labetalol HCl (Labetalol Hcl 100 Mg/20 Ml Vial) 20 mg SLOW IVP Q4H PRN PRN Reason: SBP > 160 use third Loratadine (Loratadine 10 Mg Tab) 10 mg PO DAILYPRN PRN PRN Reason: Congestion Last Admin: 04/07/20 07:49 Dose: 10 mg Documented by: Metoprolol Tartrate (Metoprolol Tartrate 25 Mg Tab) 12.5 mg PO BID [facility] Last Admin: 04/07/20 07:44 Dose: 12.5 mg Documented by: Miscellaneous Information (Cath On 04/08) 0 each FS .CATH ON 04/08 [facility] Stop: 04/08/20 16:00 Miscellaneous Medication (Electrolyte Replacement Protoc 1 Each Each) 1 each FS PRN PRN PRN Reason: ELECTROLYTES Nitroglycerin (Nitroglycerin 2% Ointment 1 Inch/1 Gm Packet) 1 inch TOP BID [facility] Last Admin: 04/07/20 07:45 Dose: 1 inch Documented by: Ondansetron HCl (Ondansetron Pf 4 Mg/2 Ml Vial) 4 mg IVP Q6H PRN PRN Reason: Nausea/Vomiting use 1st Sodium Chloride (Flush - Normal Saline 10 Ml Syringe) 10 ml IVF Q12HR [facility] Last Admin: 04/07/20 07:45 Dose: 10 ml Documented by: Sodium Chloride (Flush - Normal Saline 10 Ml Syringe) 10 ml IVF PRN PRN PRN Reason: Saline Flush Tamsulosin HCl (Tamsulosin Hcl 0.4 Mg Cap) 0.4 mg PO HS [facility] Last Admin: 04/06/20 20:54 Dose: 0.4 mg Documented by: Ticagrelor (Ticagrelor 90 Mg Tablet) 90 mg PO BID [facility] Last Admin: 04/07/20 07:45 Dose: 90 mg Documented by: Vital Signs & Weight: Vital Signs Temp Pulse Resp BP BP Pulse Ox 04/07/20 11:20 98.3 F 62 20 122/56 L 95 04/07/20 07:36 98.3 F 74 16 133/63 96 04/07/20 04:00 99.6 F 87 20 155/72 H 94 L Weight 182 lb - Physical Exam General: alert & oriented x3, appears well, no apparent distress HEENT: mucus membranes moist Neck: supple neck Cardiac: regular rate and rhythm Lungs: clear to auscultation, no wheeze, rales, rhonchi Neuro: grossly intact Abdomen: soft, non-tender Extremities: no cyanosis, no clubbing, no edema Skin: clear Musculoskeletal: no pain - Labs Result Diagrams: 04/07/20 03:32 04/07/20 03:32 Troponin/CKMB CK-MB (CK-2) 0.8 ng/mL (0-6.6) 04/03/20 17:34 Troponin I 1.073 ng/mL (< 0.028) H* 04/04/20 00:43 - Assessment/Plan Assessment/Plan: 1. NSTEMI 2. Urosepsis 3. Transient LBBB 4. HTN 5. HLD 6. Moderate AI Stable. BP improved. Plan for cath tomorrow. Pt. seen and eval. by me. I agree with the A/P by the PA. chest clear. RRR gjm
--- NOTE | 2020-04-07 14:31 | PDOC.HOSPP ---
- Subjective Subjective: Examined at bedside. No acute events overnight. His positive blood cultures appear to be contaminant. He urine cultures positive for gram-negative elinor x2. Sensitivities not available. - Objective Vital Signs & Weight: Vital Signs (12 hours) Temp Pulse Resp BP BP Pulse Ox 04/07/20 11:20 98.3 F 62 20 122/56 L 95 04/07/20 07:36 98.3 F 74 16 133/63 96 04/07/20 04:00 99.6 F 87 20 155/72 H 94 L Weight Weight 182 lb I&O: 04/06/20 04/07/20 04/08/20 06:59 06:59 06:59 Intake Total 1920 1780 Output Total 450 950 Balance 1470 830 Result Diagrams: 04/07/20 03:32 04/07/20 03:32 Radiology Reviewed by me: Yes EKG Reviewed by me: Yes Hospitalist ROS - Medication Medications: Active Medications Generic Name Dose Route Start Last Admin Trade Name Freq PRN Reason Stop Dose Admin Acetaminophen 650 mg 04/03/20 22:35 04/04/20 19:34 Acetaminophen 325 Mg Tab PO 650 mg Q4H PRN Administration Headache/Fever/Mild Pain (1-3) Atorvastatin Calcium 20 mg 04/04/20 09:00 04/07/20 07:43 Atorvastatin Calcium 20 Mg Tab PO 20 mg DAILY [facility] Administration Famotidine 20 mg 04/04/20 09:00 04/07/20 07:43 Famotidine 20 Mg Tab PO 20 mg BID [facility] Administration Lisinopril/HCTZ 1 tab 04/07/20 09:00 04/07/20 07:44 Lisinopril/Hydrochlorothiazide 20/25 Mg Tablet PO 1 tab DAILY [facility] Administration Ceftriaxone Sodium 2 gm/ 100 mls @ 200 mls/hr 04/04/20 21:00 04/06/20 20:52 Sodium Chloride IVPB 100 mls HS [facility] Administration Levofloxacin 500 mg/ Device 100 mls @ 100 mls/hr 04/05/20 18:00 04/06/20 17:29 IVPB 100 mls Q24HR@1800 [facility] Administration Loratadine 10 mg 04/05/20 21:11 04/07/20 07:49 Loratadine 10 Mg Tab PO 10 mg DAILYPRN PRN Administration Congestion Metoprolol Tartrate 12.5 mg 04/05/20 21:00 04/07/20 07:44 Metoprolol Tartrate 25 Mg Tab PO 12.5 mg BID [facility] Administration Nitroglycerin 1 inch 04/06/20 21:00 04/07/20 07:45 Nitroglycerin 2% Ointment 1 Inch/1 Gm Packet TOP 1 inch BID [facility] Administration Sodium Chloride 10 ml 04/04/20 21:00 04/07/20 07:45 Flush - Normal Saline 10 Ml Syringe IVF 10 ml Q12HR [facility] Administration Tamsulosin HCl 0.4 mg 04/05/20 21:00 04/06/20 20:54 Tamsulosin Hcl 0.4 Mg Cap PO 0.4 mg HS [facility] Administration Ticagrelor 90 mg 04/05/20 09:00 04/07/20 07:45 Ticagrelor 90 Mg Tablet PO 90 mg BID [facility] Administration - Exam General Appearance: NAD Eye: PERRL ENT: normocephalic atraumatic Neck: supple, symmetric Heart: RRR, no murmur Respiratory: CTAB Gastrointestinal: soft Extremities: no cyanosis Skin: normal turgor Neurological: cranial nerve grossly intact Musculoskeletal: normal tone Psychiatric: normal affect Hosp A/P - Plan NSTEMI --cont antiplt therapy, statin, ACEi, BB. Lovenox --LHC on Wednesday per cardiology --No chest pain Sepsis secondary to UTI - resolved --cont IV abx, follow final cultures results Gram-negative UTI --as above, sensitivities pendind=g Positive blood culture --appears to be contaminant HTN - BP stable --cont current mgt Urinary frequency --cont Flomax
[2020-04-07] MEDS: cefTRIAXone\\ROCEPHIN 2 GM in Sodium Chloride 0.9% 100 ML IVPB SCH (20:20)
[2020-04-07] MEDS: Tamsulosin HCl 0.4 MG CAP PO SCH (20:21)
[2020-04-08] MEDS: Lisinopril/Hydrochlorothiazide 20/25 mg Tablet PO SCH (05:39)
[2020-04-08] MEDS: Atorvastatin Calcium 20 MG TAB PO SCH (05:39)
[2020-04-08] MEDS: Famotidine 20 MG TAB PO SCH ×2 (05:39→20:53)
[2020-04-08] MEDS: Nitroglycerin 2% Ointment 1 INCH/1 GM Packet TOP SCH (05:40)
[2020-04-08] MEDS: Metoprolol Tartrate 25 MG TAB PO SCH ×2 (05:40→20:53)
[2020-04-08] MEDS ORDERED: Sodium Chloride 0.9% 1,000 ML IV SCH ×2 (06:00→09:21)
[2020-04-08] MEDS ORDERED: Lidocaine 1% (PF) 30 ML VIAL ONE (06:47)
[2020-04-08] MEDS ORDERED: Heparin 10,000 UNITS/ 10 ML VIAL ONE (06:48)
[2020-04-08] MEDS: TICAGRELOR 90 MG TABLET PO SCH ×2 (07:03→20:53)
[2020-04-08] MEDS ORDERED: Midazolam HCl 2 mg/2 ml Vial ONE (08:10)
[2020-04-08] MEDS ORDERED: Fentanyl 100 MCG/2 ML VIAL ONE (08:10)
[2020-04-08] MEDS ORDERED: Protamine Sulfate 50 MG/5 ML VIAL ONE (08:20)
[2020-04-08] MEDS ORDERED: Iopamidol 370 76% 100 ML VIAL ONE (08:58)
[2020-04-08] MEDS ORDERED: Sodium Chloride 0.9% 200 ML IV PRN (09:20)
[2020-04-08] MEDS ORDERED: Acetaminophen/Codeine 30-300mg Tablet PO PRN ×2 (09:20)
[2020-04-08] MEDS ORDERED: Nitroglycerin 0.4 MG TAB (25 Tab Bottle) SL PRN (09:20)
[2020-04-08] MEDS ORDERED: Metoprolol Tartrate 25 MG TAB PO SCH (10:00)
--- NOTE | 2020-04-08 14:32 | PDOC.HOSPP ---
- Subjective Subjective: s/p LHC today, denies of chest pain. showed 3VD med mgt was recommended - Objective Vital Signs & Weight: Vital Signs (12 hours) Temp Pulse Resp BP BP Pulse Ox 04/08/20 11:25 98.5 F 56 L 17 144/69 H 94 L 04/08/20 09:18 98.7 F 58 L 17 149/68 H 94 L 04/08/20 07:16 98.2 F 61 18 133/73 93 L 04/08/20 05:39 62 04/08/20 04:00 99.5 F 62 15 165/72 H 95 Weight Weight 182 lb I&O: 04/07/20 04/08/20 04/09/20 06:59 06:59 06:59 Intake Total 1780 1940 Output Total 950 1650 Balance 830 290 Result Diagrams: 04/07/20 03:32 04/07/20 03:32 Radiology Reviewed by me: Yes EKG Reviewed by me: Yes Hospitalist ROS - Medication Medications: Active Medications Generic Name Dose Route Start Last Admin Trade Name Freq PRN Reason Stop Dose Admin Acetaminophen 650 mg 04/03/20 22:35 04/04/20 19:34 Acetaminophen 325 Mg Tab PO 650 mg Q4H PRN Administration Headache/Fever/Mild Pain (1-3) Atorvastatin Calcium 20 mg 04/04/20 09:00 04/08/20 05:39 Atorvastatin Calcium 20 Mg Tab PO 20 mg DAILY [facility] Administration Famotidine 20 mg 04/04/20 09:00 04/08/20 05:39 Famotidine 20 Mg Tab PO 20 mg BID [facility] Administration Lisinopril/HCTZ 1 tab 04/07/20 09:00 04/08/20 05:39 Lisinopril/Hydrochlorothiazide 20/25 Mg Tablet PO 1 tab DAILY [facility] Administration Ceftriaxone Sodium 2 gm/ 100 mls @ 200 mls/hr 04/04/20 21:00 04/07/20 20:20 Sodium Chloride IVPB 100 mls HS [facility] Administration Levofloxacin 500 mg/ Device 100 mls @ 100 mls/hr 04/05/20 18:00 04/07/20 17:15 IVPB 100 mls Q24HR@1800 [facility] Administration Sodium Chloride 1,000 mls @ 125 mls/hr 04/08/20 09:21 04/08/20 09:42 Normal Saline 0.9% IV 04/08/20 15:30 1,000 mls .Q8H [facility] Administration Loratadine 10 mg 04/05/20 21:11 04/07/20 07:49 Loratadine 10 Mg Tab PO 10 mg DAILYPRN PRN Administration Congestion Sodium Chloride 10 ml 04/04/20 21:00 04/08/20 07:03 Flush - Normal Saline 10 Ml Syringe IVF Not Given Q12HR [facility] Tamsulosin HCl 0.4 mg 04/05/20 21:00 04/07/20 20:21 Tamsulosin Hcl 0.4 Mg Cap PO 0.4 mg HS [facility] Administration Ticagrelor 90 mg 04/05/20 09:00 04/08/20 07:03 Ticagrelor 90 Mg Tablet PO Not Given BID [facility] - Exam General Appearance: NAD Eye: PERRL ENT: normocephalic atraumatic Neck: supple Heart: RRR Respiratory: CTAB Gastrointestinal: soft, non-tender Skin: normal turgor Neurological: cranial nerve grossly intact Musculoskeletal: normal tone Hosp A/P - Plan NSTEMI - s/p LHC showed 3VD, med mgt was recommended --cont antiplt therapy, statin, ACEi, BB. Lovenox --No chest pain --home when OK with cardiology Sepsis secondary to UTI - resolved --completed course of IV abx. Gram-negative UTI --as above. Positive blood culture --appears to be contaminant HTN - BP stable --cont current mgt Urinary frequency --cont Flomax
[2020-04-08] MEDS: Tamsulosin HCl 0.4 MG CAP PO SCH (20:53)
[2020-04-09] MEDS: Loratadine 10 MG TAB PO PRN (04:45)
[2020-04-09 07:22] VITALS: BP 150/70; TEMP 97.7
[2020-04-09] MEDS: Famotidine 20 MG TAB PO SCH (08:52)
[2020-04-09] MEDS: Metoprolol Tartrate 25 MG TAB PO SCH (08:52)
[2020-04-09] MEDS: Lisinopril/Hydrochlorothiazide 20/25 mg Tablet PO SCH (08:52)
[2020-04-09] MEDS: TICAGRELOR 90 MG TABLET PO SCH (08:52)
[2020-04-09] MEDS: Atorvastatin Calcium 20 MG TAB PO SCH (08:52)
[2020-04-09] MEDS ORDERED: Lisinopril 20 MG TAB PO SCH (09:00)
--- NOTE | 2020-04-09 11:13 | DIS ---
DATE OF ADMISSION: 04/03/2020 DATE OF DISCHARGE: 04/09/2020 DISCHARGE DIAGNOSES: 1. Non-ST elevation myocardial infarction status post left heart catheterization showing three vessel disease, medical management was recommended. 2. Sepsis secondary to urinary tract infection, resolved. 3. Urinary tract infection. 4. Positive blood culture due to contaminant. 5. Hypertension. 6. Urinary frequency. CONSULTATIONS: Cardiology, Dr. Peoples. PROCEDURE PERFORMED: Left heart catheterization, showed three-vessel disease. Medical management was recommended. Please refer to left heart catheterization procedure note for further details. LABORATORY DATA AND IMAGING STUDIES: 2D echo showed EF of 55% to 60%, moderate aortic regurg, [id number] mitral regurg. CBC: WBC 9.3, hemoglobin 12.1, hematocrit 36.1, platelets 286. INR 1.1. Chemistry: Sodium is 136, potassium 3.4, chloride is 104, carbon dioxide 22, BUN 10, creatinine is 0.75. Troponin 0.1, 0.84, 1.07, LDL 56, Mag 1.9. Urine positive for 75 leukocyte esterase, 7-10 wbcs. Urine culture positive for gram-negative elinor, less than 10,000 CFU. Blood cultures show presumed Corynebacterium species, likely due to contaminant. HISTORY OF PRESENT ILLNESS AND BRIEF HOSPITAL COURSE: The patient is a pleasant 65 years old gentleman, who has significant past medical history of hypertension, dyslipidemia, Castro's palsy, who presented to the ED with complaint of fever and chills x1 day. Initial workup in the ED, found that he had a fever of 103. He was admitted for sepsis, present on admission, secondary to UTI. His COVID-PCR was negative. His blood culture appears to be contaminant. His urine culture positive polymicrobial, no sensitivity was available. At any rate, the patient was fluid resuscitated based on sepsis protocol and broad-spectrum IV antibiotics. His symptoms resolved. He had no white count. No recurrent fever since he was admitted. He also found to have elevated troponin. For that reason, Cardiology was consulted. The patient was seen by Dr. Peoples. He subsequently underwent left heart catheterization, that showed three-vessel disease. Please refer to the cath report for further detail. At any rate, medical management was recommended. The patient was placed on appropriate cardiac regimen. His symptoms resolved. At this time, patient is cleared to discharge from Cardiology standpoint. Follow up with Dr. Peoples in about 3 months. His EF is preserved based on the echo report. PHYSICAL EXAMINATION: VITAL SIGNS: Temperature is 97.7, pulse 62, respiratory rate 18, saturating 95% on room air, blood pressure is 150/70. GENERAL APPEARANCE: The patient is alert, oriented x3 with normal affect. He is not in acute distress. HEENT: Normocephalic, atraumatic. Mucous membranes moist. NECK: Supple. No lymphadenopathy. No JVD. CARDIOVASCULAR: Regular rate and rhythm, S1-S2 noted. No murmur. PULMONOLOGY: Clear to auscultation bilaterally. ABDOMEN: Soft, nontender, nondistended. Positive bowel sounds. MUSCULOSKELETAL: No joint pain or tenderness. EXTREMITIES: No lower extremity edema. SKIN: Intact. NEUROLOGIC: Cranial nerves 2-12 grossly intact. The patient had a chronic Castro's palsy. PSYCHIATRIC: The patient is alert and oriented x3 with normal affect. DISCHARGE MEDICATIONS: New prescription: 1. Brilinta 90 mg b.i.d. 2. Flomax 0.4 mg p.o. daily. 3. Metoprolol 25 mg b.i.d. 4. His lisinopril dose has been increased to 20 mg b.i.d. 5. Continue Lipitor 20 mg p.o. daily. Thank you for allowing us to participate in this patient's care. Discharge time spent, 35 minutes. Job ID: [id number] [id number]
== END 2020-04-09 11:58 | disposition home or self-care (01) | DRG 871 ==
LOC: ERS 17:00 → 2NO 21:25
PROVIDERS: ADMIT Internal Medicine; ATTEND Internal Medicine
PROC: 4A023N8 Measurement of Cardiac Sampling and Pressure, Bilateral, Percutaneous Approach (ICD-10-PCS; principal; 2020-04-08)
PROC: B2161ZZ Fluoroscopy of Right and Left Heart using Low Osmolar Contrast (ICD-10-PCS; 2020-04-08)
DX: A41.50 Gram-negative sepsis, unspecified (principal); I21.A1 Myocardial infarction type 2; N39.0 Urinary tract infection, site not specified; E87.2 Acidosis; Z20.828 Contact with and (suspected) exposure to other viral communicable diseases; I10 Essential (primary) hypertension; E78.5 Hyperlipidemia, unspecified; G51.0 Bell's palsy; E78.00 Pure hypercholesterolemia, unspecified; I44.7 Left bundle-branch block, unspecified; R35.0 Frequency of micturition; Z87.891 Personal history of nicotine dependence
CPT/HCPCS: 36415; 71045; 80048; 80053; 80061; 81003; 81015; 82550; 82553; 83605; 83690; 83735; 83880; 84484; 85014; 85018; 85025; 85049; 85347; 85610; 87040; 87086; 87635; 93005; 93010; 93306; 93460; 93567; 96365; 96366; 96372; 97139; 99152; J0692; J0696; J1644; J1650; J1956; J2001; J2250; J2720; J3010; J3370; J3475; J3490; Q9967; U0003

== ENCOUNTER 2022-08-18 13:32 | Emergency (ER) | payer MEDICARE, BC ==
[2022-08-18 16:12] LABS: #Eosinphils 0.2 thou/uL (0.0-0.7); #Monocytes 0.8 thou/uL (0.11-0.59); #Neutrophils 4.8 thou/uL (1.40-6.50); %Basophils 0.3 % (0.0-1.0); %Eosinophils 2.4 % (0.0-10.0); %Lymphocytes 25.2 % (21.0-51.0); %Monocytes 10.2 % (0.0-10.0); %Neutrophils 61.9 % (42.0-75.0); Hemoglobin 14.9 g/dL (14.0-18.0); Mean Corpuscular HGB CONC 33.5 g/dL (32.0-36.0); Mean Corpuscular Volume 89.5 fl (78.0-98.0); Mean Platelet Volume 7.2 fL (7.4-10.4); Platelet Count 293 10x3/uL (130-400); RBC Distribution Width 12.3 % (11.5-14.5); Red Blood Cell (RBC) Count 4.97 mill/uL (4.70-6.10); White Blood Cell (WBC) Count 7.8 10x3/uL (4.8-10.8)
[2022-08-18 16:39] LABS: ALT (SGPT) 29 U/L (8-55); AST (SGOT) 20 U/L (5-34); Albumin 4.4 g/dL (3.4-4.8); Alkaline Phosphatase 70 U/L (40-110); Anion Gap 11 mmol/L (10-20); BUN (Urea Nitrogen) 21 mg/dL (8.4-25.7); Bilirubin, Total 0.7 mg/dL (0.2-1.2); Calc. Creatinine Clearance 0 mL/min (70-130); Calcium 9.4 mg/dL (7.8-10.44); Carbon Dioxide 22 mmol/L (23-31); Chloride 109 mmol/L (98-107); Estimated GFR 98; Globulin 2.8 g/dL (2.4-3.5); Glucose 104 mg/dL (80-115); Potassium 4.2 mmol/L (3.5-5.1); Protein, Total 7.2 g/dL (5.8-8.1); Sodium 138 mmol/L (136-145)
== END 2022-08-18 17:44 | disposition home or self-care (01) ==
LOC: ERS 13:32
DX: R00.1 Bradycardia, unspecified (principal); R94.31 Abnormal electrocardiogram [ECG] [EKG]; I10 Essential (primary) hypertension; Z87.891 Personal history of nicotine dependence
CPT/HCPCS: 36415; 80053; 84484; 85025; 93005